=== PATIENT | male | born 1995 | race Caucasian/White ===

== ENCOUNTER 2019-03-23 07:54 | Emergency (ER) | payer OTHER ==
[~2019-03-23] VITALS: Ht 172.7 cm; Wt 63.5 kg
[~2019-03-23 07:54] MED LIST: ADDERALL20 MG PO; CLARITIN10 MG PO; CLINDAMYCIN HC300 MG PO; DEPRESSION MED; KEFLEX500 MG PO; MOTRIN600 MG PO; NORCO 325 MG-51 TAB PO; ZITHROMAX Z PA250 MG PO
== END 2019-03-23 09:18 | disposition home or self-care (01) ==
LOC: ED 07:54
DX: F19.20 Other psychoactive substance dependence, uncomplicated (principal); R53.83 Other fatigue; R45.1 Restlessness and agitation; J45.909 Unspecified asthma, uncomplicated

== ENCOUNTER 2024-11-14 18:58 | Emergency (ER) | payer OTHER ==
[~2024-11-14] VITALS: Ht 177.8 cm; Wt 74.8 kg
[2024-11-14] MEDS ORDERED: METHOCARBAMOL 500 MG TAB PO ONE (19:35)
[2024-11-14] MEDS ORDERED: METHOCARBAMOL750 M1 PO (19:49)
[2024-11-14] MEDS ORDERED: PREDNISONE20 M1 PO (19:49)
[2024-11-14] MEDS ORDERED: Water, Sterile 10 ML VIAL ONE (20:08)
== END 2024-11-14 20:05 | disposition home or self-care (01) ==
LOC: ED 18:58
DX: S16.1XXA Strain of muscle, fascia and tendon at neck level, initial encounter (principal); F17.200 Nicotine dependence, unspecified, uncomplicated; J45.909 Unspecified asthma, uncomplicated; F32.A Depression, unspecified; F90.9 Attention-deficit hyperactivity disorder, unspecified type; X58.XXXA Exposure to other specified factors, initial encounter; Y93.89 Activity, other specified; Y92.89 Other specified places as the place of occurrence of the external cause; Y99.8 Other external cause status